=== PATIENT | female | born 2000 | race Two or more races ===

== ENCOUNTER 2020-02-28 04:11 | Inpatient (IN) | payer MEDICAID ==
[~2020-02-28] VITALS: Ht 137.2 cm; Wt 61.5 kg
[2020-02-28] VITALS (8 sets, daily range): BP systolic 103–122; BP diastolic 65–78
[2020-02-28] MEDS ORDERED: ETOMIDATE (2MG/ML) 20ML VIAL IV ONE (04:23)
[2020-02-28] MEDS ORDERED: SUCCINYLCHOLINE CHLORIDE 20 MG/ML 10ML VIAL IV ONE (04:23)
[2020-02-28 05:23] LABS: Hematocrit 36.6 % (36.0-46.0); Hemoglobin 12.1 g/dL (12.2-16.2); Mean Corpuscular Hemoglobin 30.7 pg (28.0-32.0); Mean Corpuscular Hgb Conc. 33.2 g/dL (32.0-36.0); Mean Corpuscular Volume 92.6 fL (80.0-100.0); Platelet Count (auto) 143 10^3/uL (140-450); Red Blood Cells 3.95 10^6/uL (4.0-5.20); Red Cell Distribution Width 15.3 % (11.8-14.3); White Blood Cell 6.6 10^3/uL (4.4-10.8)
[2020-02-28 05:36] LABS: Basophils % (manual) 0 (0.0-2.0); Blast Cells 0; Eosinophils % (manual) 0 (0-7); Metamyelocytes % 0; Myelocytes % 0; Promyelocytes % 0; Reactive Lymphocytes 0
[2020-02-28 05:40] LABS: Albumin 2.6 g/dL (3.4-5.0); Calcium 8.2 mg/dL (8.5-10.1); Potassium 4.7 mmol/L (3.5-5.1)
[2020-02-28 05:41] LABS: Lactic Acid w/Reflex 2.8 mmol/L (0.4-2.0)
[2020-02-28 05:44] LABS: BUN/Creatinine Ratio 15.8; Bilirubin, Total 0.3 mg/dL (0.2-1.0); Total Protein 6.8 g/dL (6.4-8.2)
[2020-02-28 05:58] LABS: INR 0.96 (0.9-1.15); Partial Thromboplastin Time 29.1 sec (23.0-31.2)
[2020-02-28] MEDS ORDERED: SODIUM CHLORIDE 0.9% 1,000 ML IV ONE (06:00)
[2020-02-28] MEDS ORDERED: levoFLOXacin 750MG 150 ML IV ONE (06:00)
[2020-02-28 06:07] LABS: Band Neutrophils % (manual) 1; Lymphocytes % (manual) 4 (10.0-50.0); Monocytes % (manual) 2 (0-12)
[2020-02-28] MEDS ORDERED: MORPHINE SULF INJ 2 MG/ML SYRINGE 1ML IV PRN (07:00)
[2020-02-28] MEDS ORDERED: NITROGLYCERIN 0.4 MG SL TAB SL PRN (07:00)
[2020-02-28] MEDS ORDERED: LORazepam 2MG/ML-1ML VIAL IV ONE (07:30)
[2020-02-28 07:44] LABS: Magnesium 3.1 mg/dL (1.6-2.6)
[2020-02-28 07:53] LABS: Lactate Dehydrogenase 766 U/L (84-246)
[2020-02-28 07:58] LABS: CRP High Sensitivity > 19 mg/dL (< 0.3)
[2020-02-28] MEDS ORDERED: ASPirin 81 mg TAB PO SCH (10:00)
[2020-02-28] MEDS ORDERED: DexAMETHasone SOD PHOS 10MG/1ML VIAL INJ IV SCH (10:00)
[2020-02-28] MEDS ORDERED: FUROSEMIDE 20 MG/2 ML VIAL IV ONE (10:30)
[2020-02-28] MEDS: ASCORBIC ACID 1,000 MG TAB PO SCH (12:18)
[2020-02-28] MEDS: DOXYCYCLINE 100MG/250ML 250 ML IV SCH ×2 (12:18→22:59)
[2020-02-28] MEDS: ZINC SULFATE 220mg CAP or TAB PO SCH (12:18)
[2020-02-28] MEDS: FAMOTIDINE 20 MG TAB PO SCH ×2 (12:18→22:59)
[2020-02-28] MEDS: CHOLECALCIFEROL (VITD3) 2,000 UNIT CAP PO SCH (12:19)
[2020-02-28] MEDS: ENOXAPARIN SOD 40 MG/0.4 ML SYRINGE SC SCH (12:19)
[2020-02-28] MEDS: ALBUTEROL SULF HFA 90MCG INH 200DOSE IN SCH ×2 (14:10→21:33)
[2020-02-28] MEDS ORDERED: IPRA0.00 IN (14:14)
[2020-02-28] MEDS ORDERED: PROM1SOL2 PO (14:14)
[2020-02-28] MEDS ORDERED: AZIT250T9 PO (14:14)
[2020-02-28] MEDS ORDERED: BENZ100C97 PO (14:14)
[2020-02-28] MEDS ORDERED: REMDESIVIR 200 MG in NS 210ml LOADING DOSE ADULT IV ONE (16:00)
[2020-02-28] MEDS: FUROSEMIDE 20 MG/2 ML VIAL IV SCH (18:00)
[2020-02-28] MEDS: ACETAMINOPHEN 325 MG TAB PO PRN (18:13)
[2020-02-28] MEDS: BUDESONIDE (INHALATION) 180 MCG IH IN SCH (21:33)
[2020-02-28] MEDS: DexAMETHasone SOD PHOS 10MG/1ML VIAL INJ IV SCH (22:59)
[2020-02-28] MEDS: LORazepam 2MG/ML-1ML VIAL IV PRN (23:00)
[2020-02-29] VITALS (51 sets, daily range): BP systolic 89–128; BP diastolic 33–92
[2020-02-29] MEDS: ALBUTEROL SULF HFA 90MCG INH 200DOSE IN SCH ×2 (06:40→14:00)
[2020-02-29] MEDS: BUDESONIDE (INHALATION) 180 MCG IH IN SCH (06:40)
[2020-02-29] MEDS: FUROSEMIDE 20 MG/2 ML VIAL IV SCH ×2 (07:25→17:40)
[2020-02-29] MEDS: CHOLECALCIFEROL (VITD3) 2,000 UNIT CAP PO SCH (10:00)
[2020-02-29] MEDS: ASCORBIC ACID 1,000 MG TAB PO SCH (10:00)
[2020-02-29] MEDS: FAMOTIDINE 20 MG TAB PO SCH ×2 (10:00→22:00)
[2020-02-29] MEDS: ZINC SULFATE 220mg CAP or TAB PO SCH (10:00)
[2020-02-29 10:08] LABS: Hematocrit 38.4 % (36.0-46.0); Hemoglobin 12.7 g/dL (12.2-16.2); Mean Corpuscular Hemoglobin 30.4 pg (28.0-32.0); Mean Corpuscular Hgb Conc. 32.9 g/dL (32.0-36.0); Mean Corpuscular Volume 92.4 fL (80.0-100.0); Platelet Count (auto) 136 10^3/uL (140-450); Red Blood Cells 4.16 10^6/uL (4.0-5.20); White Blood Cell 7.6 10^3/uL (4.4-10.8)
[2020-02-29 10:12] LABS: Basophils % (manual) 0 (0.0-2.0); Blast Cells 0; Eosinophils % (manual) 0 (0-7); Promyelocytes % 0; Reactive Lymphocytes 0
[2020-02-29] MEDS: DexAMETHasone SOD PHOS 10MG/1ML VIAL INJ IV SCH ×2 (10:14→22:00)
[2020-02-29] MEDS: DOXYCYCLINE 100MG/250ML 250 ML IV SCH ×2 (10:14→22:00)
[2020-02-29] MEDS: ENOXAPARIN SOD 40 MG/0.4 ML SYRINGE SC SCH (10:14)
[2020-02-29 10:28] LABS: Albumin 2.5 g/dL (3.4-5.0); Calcium 8.1 mg/dL (8.5-10.1); Potassium 4.5 mmol/L (3.5-5.1)
[2020-02-29 10:35] LABS: BUN/Creatinine Ratio 21.2; Bilirubin, Total 0.4 mg/dL (0.2-1.0); Total Protein 6.7 g/dL (6.4-8.2)
[2020-02-29 10:45] LABS: Band Neutrophils % (manual) 11; Lymphocytes % (manual) 4 (10.0-50.0); Metamyelocytes % 3; Monocytes % (manual) 2 (0-12); Myelocytes % 1
[2020-02-29] MEDS: LORazepam 2MG/ML-1ML VIAL IV PRN (13:00)
[2020-02-29] MEDS: ALBUTEROL SULF 2.5 MG/0.5ML(0.5%) NEB SOLN NEB PRN ×2 (13:54→22:18)
[2020-02-29] MEDS ORDERED: PPN PER PHARMACY 0 ML IV SCH (16:00)
[2020-02-29] MEDS: ONDANSETRON HCL 4 MG/2 ML VIAL IV PRN (17:12)
[2020-02-29] MEDS: REMDESIVIR 100mg in NS 230ml DAILYx4DAYS (NO VENT) IV SCH (17:40)
[2020-02-29] MEDS ORDERED: SUCCINYLCHOLINE CHLORIDE 20 MG/ML 10ML VIAL IV ONE (17:45)
[2020-02-29] MEDS ORDERED: ETOMIDATE (2MG/ML) 20ML VIAL IV ONE (17:45)
[2020-02-29] MEDS ORDERED: ROCURONIUM 10MG/ML 10ML VIAL IV ONE (17:46)
[2020-02-29] MEDS ORDERED: PROPOFOL 0 ML IV ONE (17:46)
[2020-02-29] MEDS ORDERED: MIDAZOLAM DRIP 50 mg/50mL 50 ML IV ONE ×2 (17:49→18:31)
[2020-02-29] MEDS: MIDAZOLAM DRIP 50 mg/50mL 50 ML IV SCH (18:13)
[2020-02-29] MEDS: PROPOFOL 100 ML IV SCH (18:13)
[2020-02-29] MEDS: fentaNYL Drip 2500mCg/250mlNS 250 ML IV SCH (18:13)
[2020-02-29] MEDS ORDERED: fentaNYL Drip 2500mCg/250mlNS 250 ML IV ONE (18:16)
[2020-02-29] MEDS: NOREPINEPHRINE 8 MG/250ML KIT 250 ML IV SCH (18:30)
[2020-02-29] MEDS ORDERED: PROPOFOL 100 ML IV ONE (18:35)
[2020-02-29 19:08] LABS: Magnesium 2.6 mg/dL (1.6-2.6)
[2020-02-29] MEDS ORDERED: AMINO ACID INFUSION IN D5W 2,000 ML IV NR (20:00)
[2020-02-29] MEDS: BUDESONIDE (INHALATION) 0.5 MG/2 ML NEB NEB SCH (22:18)
[2020-03-01] VITALS (105 sets, daily range): BP systolic 85–111; BP diastolic 30–65
[2020-03-01] MEDS ORDERED: DEXTROSE (50%) 50ML SYRG IV SCH
[2020-03-01 05:51] LABS: Hematocrit 33.7 % (36.0-46.0); Mean Corpuscular Hemoglobin 30.4 pg (28.0-32.0); Mean Corpuscular Hgb Conc. 32.8 g/dL (32.0-36.0); Mean Corpuscular Volume 92.8 fL (80.0-100.0); Platelet Count (auto) 93 10^3/uL (140-450); Red Blood Cells 3.63 10^6/uL (4.0-5.20); Red Cell Distribution Width 15.1 % (11.8-14.3); White Blood Cell 5.9 10^3/uL (4.4-10.8)
[2020-03-01 05:56] LABS: Basophils % (manual) 0 (0.0-2.0); Blast Cells 0; Eosinophils % (manual) 0 (0-7); Metamyelocytes % 0; Myelocytes % 0; Promyelocytes % 0; Reactive Lymphocytes 0
[2020-03-01] MEDS: InsuLIN REG 1unit/0.01ml Soln (100units/ml) SC SCH ×4 (06:00→18:00)
[2020-03-01] MEDS: FUROSEMIDE 20 MG/2 ML VIAL IV SCH (06:00)
[2020-03-01] MEDS: ACCU-CHEK COMFORT CURVE STRIP VI SCH ×4 (06:00→18:14)
[2020-03-01 06:09] LABS: Calcium 7.6 mg/dL (8.5-10.1); Potassium 3.8 mmol/L (3.5-5.1)
[2020-03-01 06:19] LABS: Albumin 2.2 g/dL (3.4-5.0); BUN/Creatinine Ratio 29.3; Band Neutrophils % (manual) 5; Bilirubin, Total 0.4 mg/dL (0.2-1.0); Lymphocytes % (manual) 8 (10.0-50.0); Magnesium 2.8 mg/dL (1.6-2.6); Monocytes % (manual) 4 (0-12); Pre Albumin 6.6 mg/dL (20.0-40.0); Total Protein 5.9 g/dL (6.4-8.2)
[2020-03-01] MEDS: BUDESONIDE (INHALATION) 0.5 MG/2 ML NEB NEB SCH ×2 (06:31→21:50)
[2020-03-01] MEDS: ALBUTEROL SULF 2.5 MG/0.5ML(0.5%) NEB SOLN NEB PRN ×3 (06:31→21:50)
[2020-03-01] MEDS: DexAMETHasone SOD PHOS 10MG/1ML VIAL INJ IV SCH ×2 (09:07→22:00)
[2020-03-01] MEDS: ZINC SULFATE 220mg CAP or TAB PO SCH (09:09)
[2020-03-01] MEDS: FAMOTIDINE 20 MG TAB PO SCH ×2 (09:09→22:00)
[2020-03-01] MEDS: DOXYCYCLINE 100MG/250ML 250 ML IV SCH ×2 (09:09→22:00)
[2020-03-01] MEDS: CHOLECALCIFEROL (VITD3) 2,000 UNIT CAP PO SCH (09:10)
[2020-03-01] MEDS: ASCORBIC ACID 1,000 MG TAB PO SCH (09:10)
[2020-03-01] MEDS: ENOXAPARIN SOD 40 MG/0.4 ML SYRINGE SC SCH (09:12)
[2020-03-01] MEDS: MIDAZOLAM DRIP 50 mg/50mL 50 ML IV SCH ×2 (09:16→22:00)
[2020-03-01] MEDS: fentaNYL Drip 2500mCg/250mlNS 250 ML IV SCH (13:59)
[2020-03-01] MEDS: REMDESIVIR 100mg in NS 230ml DAILYx4DAYS (NO VENT) IV SCH (16:47)
[2020-03-01] MEDS: ACETAMINOPHEN 325 MG TAB PO PRN (17:32)
[2020-03-01] MEDS: PROPOFOL 100 ML IV SCH (17:45)
[2020-03-01] MEDS: NOREPINEPHRINE 8 MG/250ML KIT 250 ML IV SCH (17:45)
[2020-03-01] MEDS: Jevity 1.2 Cal/Fiber 1 Liter GT SCH (19:00)
[2020-03-01] MEDS ORDERED: PPN PER PHARMACY IV NR ×8 (20:00)
[2020-03-02] VITALS (94 sets, daily range): BP systolic 96–122; BP diastolic 37–56
[2020-03-02] MEDS: InsuLIN REG 1unit/0.01ml Soln (100units/ml) SC SCH ×2 (00:21→06:00)
[2020-03-02] MEDS: ACCU-CHEK COMFORT CURVE STRIP VI SCH ×2 (00:22→06:00)
[2020-03-02 06:41] LABS: Hemoglobin 11.5 g/dL (12.2-16.2); Mean Corpuscular Hemoglobin 30.2 pg (28.0-32.0); Mean Corpuscular Hgb Conc. 32.8 g/dL (32.0-36.0); Mean Corpuscular Volume 92.2 fL (80.0-100.0); Platelet Count (auto) 119 10^3/uL (140-450); Red Blood Cells 3.79 10^6/uL (4.0-5.20); Red Cell Distribution Width 15.4 % (11.8-14.3); White Blood Cell 10.2 10^3/uL (4.4-10.8)
[2020-03-02] MEDS: BUDESONIDE (INHALATION) 0.5 MG/2 ML NEB NEB SCH ×2 (06:42→21:55)
[2020-03-02] MEDS: ALBUTEROL SULF 2.5 MG/0.5ML(0.5%) NEB SOLN NEB PRN ×2 (06:42→14:56)
[2020-03-02 06:46] LABS: Basophils % (manual) 0 (0.0-2.0); Blast Cells 0; Eosinophils % (manual) 0 (0-7); Metamyelocytes % 0; Myelocytes % 0; Promyelocytes % 0; Reactive Lymphocytes 0
[2020-03-02 07:06] LABS: BUN/Creatinine Ratio 40.2; Calcium 8.2 mg/dL (8.5-10.1)
[2020-03-02] MEDS ORDERED: METOPROLOL TARTRATE 1MG/1ML-5ML VIAL IV ONE (07:42)
[2020-03-02] MEDS: FUROSEMIDE 20 MG/2 ML VIAL IV SCH (08:34)
[2020-03-02] MEDS: DOXYCYCLINE 100MG/250ML 250 ML IV SCH ×2 (08:34→22:28)
[2020-03-02] MEDS: DexAMETHasone SOD PHOS 10MG/1ML VIAL INJ IV SCH ×2 (08:34→22:27)
[2020-03-02] MEDS: ENOXAPARIN SOD 40 MG/0.4 ML SYRINGE SC SCH (08:35)
[2020-03-02] MEDS: ASCORBIC ACID 1,000 MG TAB PO SCH (08:35)
[2020-03-02] MEDS: CHOLECALCIFEROL (VITD3) 2,000 UNIT CAP PO SCH (08:35)
[2020-03-02] MEDS: FAMOTIDINE 20 MG TAB PO SCH ×2 (08:35→22:28)
[2020-03-02] MEDS: ZINC SULFATE 220mg CAP or TAB PO SCH (08:35)
[2020-03-02 09:36] LABS: Band Neutrophils % (manual) 9
[2020-03-02 09:37] LABS: Lymphocytes % (manual) 3 (10.0-50.0); Monocytes % (manual) 3 (0-12)
[2020-03-02] MEDS: MIDAZOLAM DRIP 50 mg/50mL 50 ML IV SCH (16:10)
[2020-03-02] MEDS: REMDESIVIR 100mg in NS 230ml DAILYx4DAYS (NO VENT) IV SCH (16:19)
[2020-03-02] MEDS: NOREPINEPHRINE 8 MG/250ML KIT 250 ML IV SCH (17:27)
[2020-03-02] MEDS: PROPOFOL 100 ML IV SCH (18:13)
[2020-03-02] MEDS: fentaNYL Drip 2500mCg/250mlNS 250 ML IV SCH (18:26)
[2020-03-02] MEDS: Jevity 1.2 Cal/Fiber 1 Liter GT SCH (20:30)
[2020-03-02] MEDS: SODIUM CHLOR 0.9% PF (SALINE LOCK) 10ML VIAL/SYR IV SCH (22:28)
[2020-03-03] VITALS (78 sets, daily range): BP systolic 19–136; BP diastolic 15–92
[2020-03-03] MEDS: MIDAZOLAM DRIP 50 mg/50mL 50 ML IV SCH (00:03)
[2020-03-03 03:15] LABS: Hematocrit 35.3 % (36.0-46.0); Hemoglobin 11.2 g/dL (12.2-16.2); Mean Corpuscular Hemoglobin 29.5 pg (28.0-32.0); Mean Corpuscular Hgb Conc. 31.9 g/dL (32.0-36.0); Mean Corpuscular Volume 92.5 fL (80.0-100.0); Platelet Count (auto) 112 10^3/uL (140-450); Red Blood Cells 3.81 10^6/uL (4.0-5.20); Red Cell Distribution Width 15.5 % (11.8-14.3); White Blood Cell 13.2 10^3/uL (4.4-10.8)
[2020-03-03 03:21] LABS: Basophils % (manual) 0 (0.0-2.0); Blast Cells 0; Eosinophils % (manual) 0 (0-7); Metamyelocytes % 0; Myelocytes % 0; Promyelocytes % 0; Reactive Lymphocytes 0
[2020-03-03 03:23] LABS: Albumin 2.2 g/dL (3.4-5.0); Calcium 8.2 mg/dL (8.5-10.1); Potassium 4.3 mmol/L (3.5-5.1)
[2020-03-03 03:27] LABS: BUN/Creatinine Ratio 38.4; Bilirubin, Total 0.4 mg/dL (0.2-1.0); Total Protein 5.9 g/dL (6.4-8.2)
[2020-03-03 04:20] LABS: Band Neutrophils % (manual) 3; Lymphocytes % (manual) 5 (10.0-50.0); Monocytes % (manual) 3 (0-12)
[2020-03-03] MEDS: ALBUTEROL SULF 2.5 MG/0.5ML(0.5%) NEB SOLN NEB PRN ×2 (06:02→22:47)
[2020-03-03] MEDS: BUDESONIDE (INHALATION) 0.5 MG/2 ML NEB NEB SCH ×2 (06:03→22:47)
[2020-03-03] MEDS: FAMOTIDINE 20 MG TAB PO SCH (10:08)
[2020-03-03] MEDS: ENOXAPARIN SOD 40 MG/0.4 ML SYRINGE SC SCH (10:08)
[2020-03-03] MEDS: CHOLECALCIFEROL (VITD3) 2,000 UNIT CAP PO SCH (10:08)
[2020-03-03] MEDS: ZINC SULFATE 220mg CAP or TAB PO SCH (10:09)
[2020-03-03] MEDS: DexAMETHasone SOD PHOS 10MG/1ML VIAL INJ IV SCH ×2 (10:09→21:44)
[2020-03-03] MEDS: FUROSEMIDE 20 MG/2 ML VIAL IV SCH (10:09)
[2020-03-03] MEDS: SODIUM CHLOR 0.9% PF (SALINE LOCK) 10ML VIAL/SYR IV SCH ×2 (10:10→21:46)
[2020-03-03] MEDS: DOXYCYCLINE 100MG/250ML 250 ML IV SCH ×2 (10:10→21:46)
[2020-03-03] MEDS: ATRACURIUM BESYLATE 1,000 MG in D5W 5% 150 ML IV SCH (11:52)
[2020-03-03] MEDS ORDERED: cefTRIAXone 1GM/50ML D5W 50 ML IV ONE (14:45)
[2020-03-03] MEDS: ASCORBIC ACID 1,000 MG TAB PO SCH (18:17)
[2020-03-03] MEDS: REMDESIVIR 100mg in NS 230ml DAILYx4DAYS (NO VENT) IV SCH (18:23)
[2020-03-03] MEDS: FREE WATER GT SCH (19:40)
[2020-03-03] MEDS: PROPOFOL 100 ML IV SCH (21:40)
[2020-03-03] MEDS: fentaNYL Drip 2500mCg/250mlNS 250 ML IV SCH (21:40)
[2020-03-03] MEDS: NOREPINEPHRINE 8 MG/250ML KIT 250 ML IV SCH (21:41)
[2020-03-03] MEDS: FAMOTIDINE (10MG/ML) 2ML VL IV SCH (21:45)
[2020-03-04] VITALS (100 sets, daily range): BP systolic 90–140; BP diastolic 29–90
[2020-03-04] MEDS: MIDAZOLAM DRIP 50 mg/50mL 50 ML IV SCH ×6 (02:38→21:19)
[2020-03-04 06:00] LABS: Hematocrit 33.3 % (36.0-46.0); Mean Corpuscular Hemoglobin 30.5 pg (28.0-32.0); Mean Corpuscular Hgb Conc. 33.1 g/dL (32.0-36.0); Mean Corpuscular Volume 92.2 fL (80.0-100.0); Platelet Count (auto) 109 10^3/uL (140-450); Red Blood Cells 3.61 10^6/uL (4.0-5.20); Red Cell Distribution Width 15.3 % (11.8-14.3); White Blood Cell 9.7 10^3/uL (4.4-10.8)
[2020-03-04] MEDS: FREE WATER GT SCH ×4 (06:00→17:41)
[2020-03-04 06:13] LABS: Band Neutrophils % (manual) 0; Basophils % (manual) 0 (0.0-2.0); Blast Cells 0; Eosinophils % (manual) 0 (0-7); Myelocytes % 0; Promyelocytes % 0; Reactive Lymphocytes 0
[2020-03-04 06:22] LABS: Potassium 4.8 mmol/L (3.5-5.1)
[2020-03-04 06:31] LABS: Albumin 2.2 g/dL (3.4-5.0); BUN/Creatinine Ratio 39.7; Bilirubin, Total 0.5 mg/dL (0.2-1.0); Calcium 7.9 mg/dL (8.5-10.1); Total Protein 5.6 g/dL (6.4-8.2)
[2020-03-04 06:34] LABS: Lymphocytes % (manual) 3 (10.0-50.0); Metamyelocytes % 1; Monocytes % (manual) 2 (0-12)
[2020-03-04] MEDS: BUDESONIDE (INHALATION) 0.5 MG/2 ML NEB NEB SCH ×2 (06:40→21:58)
[2020-03-04] MEDS: ALBUTEROL SULF 2.5 MG/0.5ML(0.5%) NEB SOLN NEB PRN ×2 (06:40→21:58)
[2020-03-04] MEDS: PROPOFOL 100 ML IV SCH (07:15)
[2020-03-04] MEDS: cefTRIAXone 1GM/50ML D5W 50 ML IV SCH (08:53)
[2020-03-04] MEDS: ZINC SULFATE 220mg CAP or TAB PO SCH (10:00)
[2020-03-04] MEDS: ASCORBIC ACID 1,000 MG TAB PO SCH (10:00)
[2020-03-04] MEDS: SODIUM CHLOR 0.9% PF (SALINE LOCK) 10ML VIAL/SYR IV SCH ×2 (10:00→21:17)
[2020-03-04] MEDS: CHOLECALCIFEROL (VITD3) 2,000 UNIT CAP PO SCH (10:00)
[2020-03-04] MEDS: DexAMETHasone SOD PHOS 10MG/1ML VIAL INJ IV SCH ×2 (10:21→21:17)
[2020-03-04] MEDS: FAMOTIDINE (10MG/ML) 2ML VL IV SCH ×2 (10:21→21:17)
[2020-03-04] MEDS: FUROSEMIDE 20 MG/2 ML VIAL IV SCH (10:22)
[2020-03-04] MEDS: fentaNYL Drip 2500mCg/250mlNS 250 ML IV SCH ×2 (11:03→23:02)
[2020-03-04 13:02] LABS: INR 1.13 (0.9-1.15)
[2020-03-04] MEDS: ENOXAPARIN SOD 40 MG/0.4 ML SYRINGE SC SCH (14:40)
[2020-03-04] MEDS: ATRACURIUM BESYLATE 1,000 MG in D5W 5% 150 ML IV SCH (17:00)
[2020-03-05] VITALS (100 sets, daily range): BP systolic 80–141; BP diastolic 41–135
[2020-03-05 03:33] LABS: Hematocrit 34.8 % (36.0-46.0); Hemoglobin 11.4 g/dL (12.2-16.2); Mean Corpuscular Hemoglobin 30.1 pg (28.0-32.0); Mean Corpuscular Hgb Conc. 32.7 g/dL (32.0-36.0); Mean Corpuscular Volume 92.2 fL (80.0-100.0); Platelet Count (auto) 114 10^3/uL (140-450); Red Blood Cells 3.77 10^6/uL (4.0-5.20); Red Cell Distribution Width 14.8 % (11.8-14.3); White Blood Cell 9.4 10^3/uL (4.4-10.8)
[2020-03-05 03:41] LABS: Basophils % (manual) 0 (0.0-2.0); Blast Cells 0; Eosinophils % (manual) 0 (0-7); Metamyelocytes % 0; Myelocytes % 0; Promyelocytes % 0; Reactive Lymphocytes 0
[2020-03-05 03:50] LABS: Albumin 2.3 g/dL (3.4-5.0); Potassium 4.6 mmol/L (3.5-5.1)
[2020-03-05 03:53] LABS: BUN/Creatinine Ratio 33.8; Bilirubin, Total 0.6 mg/dL (0.2-1.0); Total Protein 5.8 g/dL (6.4-8.2)
[2020-03-05 03:57] LABS: Band Neutrophils % (manual) 4; Lymphocytes % (manual) 3 (10.0-50.0); Monocytes % (manual) 1 (0-12)
[2020-03-05] MEDS: ALBUTEROL SULF 2.5 MG/0.5ML(0.5%) NEB SOLN NEB PRN ×2 (06:52→22:09)
[2020-03-05] MEDS: BUDESONIDE (INHALATION) 0.5 MG/2 ML NEB NEB SCH ×2 (06:52→22:09)
[2020-03-05] MEDS: ATRACURIUM BESYLATE 1,000 MG in D5W 5% 150 ML IV SCH (08:08)
[2020-03-05] MEDS: cefTRIAXone 1GM/50ML D5W 50 ML IV SCH (09:07)
[2020-03-05] MEDS: FAMOTIDINE (10MG/ML) 2ML VL IV SCH ×2 (09:21→21:37)
[2020-03-05] MEDS: FUROSEMIDE 20 MG/2 ML VIAL IV SCH (09:21)
[2020-03-05] MEDS: DexAMETHasone SOD PHOS 10MG/1ML VIAL INJ IV SCH ×2 (09:24→21:38)
[2020-03-05] MEDS: fentaNYL Drip 2500mCg/250mlNS 250 ML IV SCH ×2 (09:24→22:04)
[2020-03-05] MEDS: MIDAZOLAM DRIP 50 mg/50mL 50 ML IV SCH ×4 (10:00→22:03)
[2020-03-05] MEDS: SODIUM CHLOR 0.9% PF (SALINE LOCK) 10ML VIAL/SYR IV SCH ×2 (13:30→21:38)
[2020-03-05] MEDS: ZINC SULFATE 220mg CAP or TAB PO SCH (13:30)
[2020-03-05] MEDS: FREE WATER GT SCH ×4 (13:30→23:09)
[2020-03-05] MEDS: ASCORBIC ACID 1,000 MG TAB PO SCH (13:30)
[2020-03-05] MEDS: CHOLECALCIFEROL (VITD3) 2,000 UNIT CAP PO SCH (16:11)
[2020-03-05] MEDS: ENOXAPARIN SOD 40 MG/0.4 ML SYRINGE SC SCH (16:11)
[2020-03-05] MEDS: PROPOFOL 100 ML IV SCH (18:13)
[2020-03-05] MEDS: NOREPINEPHRINE 8 MG/250ML KIT 250 ML IV SCH (18:30)
[2020-03-06] VITALS (99 sets, daily range): BP systolic 85–167; BP diastolic 43–161
[2020-03-06 04:06] LABS: Hematocrit 36.8 % (36.0-46.0); Hemoglobin 12.1 g/dL (12.2-16.2); Mean Corpuscular Hgb Conc. 32.8 g/dL (32.0-36.0); Mean Corpuscular Volume 91.5 fL (80.0-100.0); Platelet Count (auto) 129 10^3/uL (140-450); Red Blood Cells 4.02 10^6/uL (4.0-5.20); Red Cell Distribution Width 14.6 % (11.8-14.3); White Blood Cell 8.8 10^3/uL (4.4-10.8)
[2020-03-06 04:19] LABS: Basophils % (manual) 0 (0.0-2.0); Blast Cells 0; Eosinophils % (manual) 0 (0-7); Metamyelocytes % 0; Promyelocytes % 0; Reactive Lymphocytes 0
[2020-03-06 04:23] LABS: Albumin 2.4 g/dL (3.4-5.0); Calcium 7.9 mg/dL (8.5-10.1); Potassium 4.6 mmol/L (3.5-5.1)
[2020-03-06 04:28] LABS: BUN/Creatinine Ratio 37.1; Bilirubin, Total 0.8 mg/dL (0.2-1.0); Total Protein 5.7 g/dL (6.4-8.2)
[2020-03-06 04:42] LABS: Band Neutrophils % (manual) 3; Lymphocytes % (manual) 4 (10.0-50.0); Monocytes % (manual) 2 (0-12); Myelocytes % 1
[2020-03-06] MEDS: FREE WATER GT SCH ×3 (05:33→18:00)
[2020-03-06] MEDS: MIDAZOLAM DRIP 50 mg/50mL 50 ML IV SCH ×2 (06:43→21:18)
[2020-03-06] MEDS: BUDESONIDE (INHALATION) 0.5 MG/2 ML NEB NEB SCH ×2 (06:58→18:10)
[2020-03-06] MEDS: ALBUTEROL SULF 2.5 MG/0.5ML(0.5%) NEB SOLN NEB PRN ×2 (06:58→18:10)
[2020-03-06] MEDS: cefTRIAXone 1GM/50ML D5W 50 ML IV SCH (09:00)
[2020-03-06] MEDS: DexAMETHasone SOD PHOS 10MG/1ML VIAL INJ IV SCH ×2 (12:30→21:28)
[2020-03-06] MEDS: CHOLECALCIFEROL (VITD3) 2,000 UNIT CAP PO SCH (12:30)
[2020-03-06] MEDS: FUROSEMIDE 20 MG/2 ML VIAL IV SCH (12:30)
[2020-03-06] MEDS: ENOXAPARIN SOD 40 MG/0.4 ML SYRINGE SC SCH (12:30)
[2020-03-06] MEDS: ASCORBIC ACID 1,000 MG TAB PO SCH (12:30)
[2020-03-06] MEDS: ZINC SULFATE 220mg CAP or TAB PO SCH (12:30)
[2020-03-06] MEDS: FAMOTIDINE (10MG/ML) 2ML VL IV SCH ×2 (12:30→21:29)
[2020-03-06] MEDS: SODIUM CHLOR 0.9% PF (SALINE LOCK) 10ML VIAL/SYR IV SCH ×2 (12:30→21:29)
[2020-03-06] MEDS ORDERED: D5W 5% IV SCH (16:00)
[2020-03-06] MEDS ORDERED: ATRACURIUM BESYLATE IV SCH (16:00)
[2020-03-06] MEDS: D5W 5% IV SCH (17:00)
[2020-03-06] MEDS: ATRACURIUM BESYLATE IV SCH (17:00)
[2020-03-06] MEDS: PROPOFOL 100 ML IV SCH (18:13)
[2020-03-06] MEDS: NOREPINEPHRINE 8 MG/250ML KIT 250 ML IV SCH (18:30)
[2020-03-07] VITALS (86 sets, daily range): BP systolic 80–154; BP diastolic 37–118
[2020-03-07 03:33] LABS: Basophils # (auto) 0 10 ^3/uL (0-0.2); Basophils % (auto) 0.3 % (0.0-2.0); Eosinophils # (auto) 0 10 ^3/uL (0-0.8); Hematocrit 37.4 % (36.0-46.0); Hemoglobin 12.3 g/dL (12.2-16.2); Lymphocytes # (auto) 0.2 10 ^3/uL (0.4-5.4); Lymphocytes % (auto) 2.2 % (10.0-50.0); Mean Corpuscular Hgb Conc. 32.8 g/dL (32.0-36.0); Mean Corpuscular Volume 91.5 fL (80.0-100.0); Monocytes # (auto) 0.2 10 ^3/uL (0-1.3); Monocytes % (auto) 2.4 % (0.0-12.0); Neutrophils # (auto) 9.5 10 ^3/uL (1.6-8.6); Neutrophils % (auto) 95.1 % (37.0-80.0); Platelet Count (auto) 122 10^3/uL (140-450); Red Blood Cells 4.08 10^6/uL (4.0-5.20); White Blood Cell 9.9 10^3/uL (4.4-10.8)
[2020-03-07 03:56] LABS: Albumin 2.4 g/dL (3.4-5.0); Calcium 7.9 mg/dL (8.5-10.1); Potassium 4.2 mmol/L (3.5-5.1)
[2020-03-07 04:01] LABS: BUN/Creatinine Ratio 45.8; Bilirubin, Total 0.8 mg/dL (0.2-1.0); Total Protein 5.7 g/dL (6.4-8.2)
[2020-03-07] MEDS: FREE WATER GT SCH ×4 (06:00→17:36)
[2020-03-07] MEDS: cefTRIAXone 1GM/50ML D5W 50 ML IV SCH (09:15)
[2020-03-07] MEDS: ENOXAPARIN SOD 40 MG/0.4 ML SYRINGE SC SCH (09:49)
[2020-03-07] MEDS: FUROSEMIDE 20 MG/2 ML VIAL IV SCH (09:49)
[2020-03-07] MEDS: ASCORBIC ACID 1,000 MG TAB PO SCH (09:49)
[2020-03-07] MEDS: CHOLECALCIFEROL (VITD3) 2,000 UNIT CAP PO SCH (09:49)
[2020-03-07] MEDS: DexAMETHasone SOD PHOS 10MG/1ML VIAL INJ IV SCH ×2 (09:49→22:00)
[2020-03-07] MEDS: ZINC SULFATE 220mg CAP or TAB PO SCH (09:49)
[2020-03-07] MEDS: FAMOTIDINE (10MG/ML) 2ML VL IV SCH ×2 (09:49→22:00)
[2020-03-07] MEDS: SODIUM CHLOR 0.9% PF (SALINE LOCK) 10ML VIAL/SYR IV SCH ×2 (09:49→22:00)
[2020-03-07] MEDS: BUDESONIDE (INHALATION) 0.5 MG/2 ML NEB NEB SCH ×2 (10:26→22:50)
[2020-03-07] MEDS ORDERED: hydrALAZINE HCL 20 MG/ML VL IV PRN (13:15)
[2020-03-07] MEDS: D5W 5% IV SCH (14:11)
[2020-03-07] MEDS: ATRACURIUM BESYLATE IV SCH (14:11)
[2020-03-07] MEDS: fentaNYL Drip 2500mCg/250mlNS 250 ML IV SCH (17:37)
[2020-03-07] MEDS: PROPOFOL 100 ML IV SCH (17:37)
[2020-03-07] MEDS: NOREPINEPHRINE 8 MG/250ML KIT 250 ML IV SCH (17:38)
[2020-03-07] MEDS: MIDAZOLAM DRIP 50 mg/50mL 50 ML IV SCH (22:00)
[2020-03-07] MEDS: ALBUTEROL SULF 2.5 MG/0.5ML(0.5%) NEB SOLN NEB PRN (23:01)
[2020-03-08] VITALS (94 sets, daily range): BP systolic 101–156; BP diastolic 44–82
[2020-03-08] MEDS: fentaNYL Drip 2500mCg/250mlNS 250 ML IV SCH ×2 (02:00→20:02)
[2020-03-08] MEDS: ATRACURIUM BESYLATE IV SCH (02:05)
[2020-03-08] MEDS: D5W 5% IV SCH (02:05)
[2020-03-08 04:21] LABS: Hematocrit 38.9 % (36.0-46.0); Mean Corpuscular Hemoglobin 30.6 pg (28.0-32.0); Mean Corpuscular Hgb Conc. 33.5 g/dL (32.0-36.0); Mean Corpuscular Volume 91.5 fL (80.0-100.0); Platelet Count (auto) 146 10^3/uL (140-450); Red Blood Cells 4.25 10^6/uL (4.0-5.20); Red Cell Distribution Width 15.1 % (11.8-14.3); White Blood Cell 15.4 10^3/uL (4.4-10.8)
[2020-03-08 04:38] LABS: Albumin 2.5 g/dL (3.4-5.0); Calcium 8.2 mg/dL (8.5-10.1); Potassium 4.4 mmol/L (3.5-5.1)
[2020-03-08 04:41] LABS: BUN/Creatinine Ratio 42.2; Total Protein 5.9 g/dL (6.4-8.2)
[2020-03-08 04:48] LABS: Basophils % (manual) 0 (0.0-2.0); Blast Cells 0; Eosinophils % (manual) 0 (0-7); Metamyelocytes % 0; Myelocytes % 0; Promyelocytes % 0; Reactive Lymphocytes 0
[2020-03-08 05:10] LABS: Band Neutrophils % (manual) 1; Lymphocytes % (manual) 5 (10.0-50.0); Monocytes % (manual) 4 (0-12)
[2020-03-08] MEDS: FREE WATER GT SCH ×3 (06:00→16:36)
[2020-03-08] MEDS: BUDESONIDE (INHALATION) 0.5 MG/2 ML NEB NEB SCH ×2 (06:09→22:34)
[2020-03-08] MEDS: ALBUTEROL SULF 2.5 MG/0.5ML(0.5%) NEB SOLN NEB PRN ×2 (06:09→22:34)
[2020-03-08] MEDS ORDERED: cefTRIAXone 1GM/50ML D5W 50 ML IV SCH (09:00)
[2020-03-08] MEDS: ZINC SULFATE 220mg CAP or TAB PO SCH (09:37)
[2020-03-08] MEDS: CHOLECALCIFEROL (VITD3) 2,000 UNIT CAP PO SCH (09:38)
[2020-03-08] MEDS: ASCORBIC ACID 1,000 MG TAB PO SCH (09:39)
[2020-03-08] MEDS: FUROSEMIDE 20 MG/2 ML VIAL IV SCH (09:39)
[2020-03-08] MEDS: FAMOTIDINE (10MG/ML) 2ML VL IV SCH ×2 (09:39→22:00)
[2020-03-08] MEDS: DexAMETHasone SOD PHOS 10MG/1ML VIAL INJ IV SCH (09:40)
[2020-03-08] MEDS: SODIUM CHLOR 0.9% PF (SALINE LOCK) 10ML VIAL/SYR IV SCH ×2 (09:40→22:00)
[2020-03-08] MEDS: ENOXAPARIN SOD 40 MG/0.4 ML SYRINGE SC SCH (09:40)
[2020-03-08] MEDS: ACETAMINOPHEN 325 MG TAB PO PRN (11:23)
[2020-03-08] MEDS: MIDAZOLAM DRIP 50 mg/50mL 50 ML IV SCH ×2 (13:04→20:03)
[2020-03-08] MEDS: LINEZOLID 600MG/300ML 300 ML IV SCH (14:22)
[2020-03-08] MEDS: MEROPENEM 1GM IVPB 100 ML IV SCH ×2 (16:37→21:45)
[2020-03-08] MEDS: NOREPINEPHRINE 8 MG/250ML KIT 250 ML IV SCH (18:30)
[2020-03-08 18:44] LABS: Urine Bacteria NONE SEEN /hpf (None Seen); Urine Blood Negative /uL (Negative); Urine Budding Yeast LOADED /hpf (None Seen); Urine Mucus FEW (None Seen); Urine Specific Gravity 1.034 (1.001-1.035); Urine WBC 37 /hpf (0 - 5)
[2020-03-09] VITALS (99 sets, daily range): BP systolic 94–149; BP diastolic 36–71
[2020-03-09] MEDS: MIDAZOLAM DRIP 50 mg/50mL 50 ML IV SCH ×5 (00:27→22:30)
[2020-03-09] MEDS: MEROPENEM 1GM IVPB 100 ML IV SCH ×3 (00:30→21:59)
[2020-03-09] MEDS: LINEZOLID 600MG/300ML 300 ML IV SCH ×2 (02:00→14:07)
[2020-03-09] MEDS: D5W 5% IV SCH ×2 (03:58→11:25)
[2020-03-09] MEDS: ATRACURIUM BESYLATE IV SCH ×2 (03:58→11:25)
[2020-03-09] MEDS: PROPOFOL 100 ML IV SCH ×2 (03:58→18:13)
[2020-03-09] MEDS: FREE WATER GT SCH ×4 (06:00→18:49)
[2020-03-09] MEDS: ALBUTEROL SULF 2.5 MG/0.5ML(0.5%) NEB SOLN NEB PRN ×2 (06:52→22:49)
[2020-03-09] MEDS: BUDESONIDE (INHALATION) 0.5 MG/2 ML NEB NEB SCH ×2 (06:52→22:49)
[2020-03-09 08:51] LABS: Basophils # (auto) 0 10 ^3/uL (0-0.2); Basophils % (auto) 0.2 % (0.0-2.0); Eosinophils # (auto) 0 10 ^3/uL (0-0.8); Eosinophils % (auto) 0.1 % (0.0-7.0); Hematocrit 38.4 % (36.0-46.0); Hemoglobin 12.3 g/dL (12.2-16.2); Lymphocytes # (auto) 0.5 10 ^3/uL (0.4-5.4); Lymphocytes % (auto) 3.3 % (10.0-50.0); Mean Corpuscular Hemoglobin 29.8 pg (28.0-32.0); Mean Corpuscular Volume 93.2 fL (80.0-100.0); Monocytes # (auto) 0.5 10 ^3/uL (0-1.3); Monocytes % (auto) 3.8 % (0.0-12.0); Neutrophils # (auto) 13.1 10 ^3/uL (1.6-8.6); Neutrophils % (auto) 92.6 % (37.0-80.0); Nucleated Red Blood Cells % 0.1 %; Platelet Count (auto) 122 10^3/uL (140-450); Red Blood Cells 4.12 10^6/uL (4.0-5.20); Red Cell Distribution Width 15.1 % (11.8-14.3); White Blood Cell 14.1 10^3/uL (4.4-10.8)
[2020-03-09] MEDS: fentaNYL Drip 2500mCg/250mlNS 250 ML IV SCH (08:54)
[2020-03-09 09:14] LABS: Albumin 2.3 g/dL (3.4-5.0); BUN/Creatinine Ratio 38.2; Calcium 8.3 mg/dL (8.5-10.1); Potassium 3.5 mmol/L (3.5-5.1)
[2020-03-09 09:17] LABS: Bilirubin, Total 1.3 mg/dL (0.2-1.0); Total Protein 5.7 g/dL (6.4-8.2)
[2020-03-09] MEDS: FUROSEMIDE 20 MG/2 ML VIAL IV SCH (10:37)
[2020-03-09] MEDS: FAMOTIDINE (10MG/ML) 2ML VL IV SCH ×2 (10:38→21:59)
[2020-03-09] MEDS: SODIUM CHLOR 0.9% PF (SALINE LOCK) 10ML VIAL/SYR IV SCH ×2 (10:38→21:59)
[2020-03-09] MEDS: DexAMETHasone SOD PHOS 10MG/1ML VIAL INJ IV SCH (10:38)
[2020-03-09] MEDS: ENOXAPARIN SOD 40 MG/0.4 ML SYRINGE SC SCH (10:39)
[2020-03-09] MEDS: ZINC SULFATE 220mg CAP or TAB PO SCH (10:39)
[2020-03-09] MEDS: CHOLECALCIFEROL (VITD3) 2,000 UNIT CAP PO SCH (10:40)
[2020-03-09] MEDS: ASCORBIC ACID 1,000 MG TAB PO SCH (10:42)
[2020-03-09] MEDS: NOREPINEPHRINE 8 MG/250ML KIT 250 ML IV SCH (18:30)
[2020-03-09] MEDS: Jevity 1.2 Cal/Fiber 1 Liter GT SCH (18:51)
[2020-03-10] VITALS (100 sets, daily range): BP systolic 94–143; BP diastolic 35–76
[2020-03-10] MEDS: FREE WATER GT SCH ×2 (00:10→05:43)
[2020-03-10] MEDS: fentaNYL Drip 2500mCg/250mlNS 250 ML IV SCH (01:02)
[2020-03-10] MEDS: LINEZOLID 600MG/300ML 300 ML IV SCH ×2 (01:28→17:01)
[2020-03-10] MEDS: D5W 5% IV SCH (04:05)
[2020-03-10] MEDS: ATRACURIUM BESYLATE IV SCH (04:05)
[2020-03-10 05:23] LABS: Basophils # (auto) 0 10 ^3/uL (0-0.2); Basophils % (auto) 0.1 % (0.0-2.0); Eosinophils # (auto) 0 10 ^3/uL (0-0.8); Hematocrit 32.7 % (36.0-46.0); Hemoglobin 10.4 g/dL (12.2-16.2); Lymphocytes # (auto) 0.3 10 ^3/uL (0.4-5.4); Lymphocytes % (auto) 2.3 % (10.0-50.0); Mean Corpuscular Hemoglobin 29.8 pg (28.0-32.0); Mean Corpuscular Hgb Conc. 31.8 g/dL (32.0-36.0); Mean Corpuscular Volume 93.7 fL (80.0-100.0); Monocytes # (auto) 0.5 10 ^3/uL (0-1.3); Monocytes % (auto) 3.3 % (0.0-12.0); Neutrophils # (auto) 13.1 10 ^3/uL (1.6-8.6); Neutrophils % (auto) 94.3 % (37.0-80.0); Platelet Count (auto) 112 10^3/uL (140-450); White Blood Cell 13.9 10^3/uL (4.4-10.8)
[2020-03-10 05:38] LABS: Albumin 2.2 g/dL (3.4-5.0); Calcium 7.8 mg/dL (8.5-10.1); Potassium 3.5 mmol/L (3.5-5.1)
[2020-03-10 05:42] LABS: BUN/Creatinine Ratio 32.9; Bilirubin, Total 0.9 mg/dL (0.2-1.0); Total Protein 5.2 g/dL (6.4-8.2)
[2020-03-10] MEDS: MIDAZOLAM DRIP 50 mg/50mL 50 ML IV SCH ×3 (05:47→19:51)
[2020-03-10] MEDS: MEROPENEM 1GM IVPB 100 ML IV SCH ×3 (05:48→21:45)
[2020-03-10] MEDS: ALBUTEROL SULF 2.5 MG/0.5ML(0.5%) NEB SOLN NEB PRN (07:12)
[2020-03-10] MEDS: BUDESONIDE (INHALATION) 0.5 MG/2 ML NEB NEB SCH ×2 (07:12→22:38)
[2020-03-10] MEDS: FAMOTIDINE (10MG/ML) 2ML VL IV SCH ×2 (09:48→22:00)
[2020-03-10] MEDS: FUROSEMIDE 20 MG/2 ML VIAL IV SCH (09:48)
[2020-03-10] MEDS: ASCORBIC ACID 1,000 MG TAB PO SCH (09:49)
[2020-03-10] MEDS: ENOXAPARIN SOD 40 MG/0.4 ML SYRINGE SC SCH (09:49)
[2020-03-10] MEDS: ZINC SULFATE 220mg CAP or TAB PO SCH (09:49)
[2020-03-10] MEDS: CHOLECALCIFEROL (VITD3) 2,000 UNIT CAP PO SCH (09:49)
[2020-03-10] MEDS: SODIUM CHLOR 0.9% PF (SALINE LOCK) 10ML VIAL/SYR IV SCH ×2 (09:50→22:00)
[2020-03-10] MEDS: DexAMETHasone SOD PHOS 10MG/1ML VIAL INJ IV SCH (09:50)
[2020-03-10] MEDS: PROPOFOL 100 ML IV SCH (19:51)
[2020-03-10] MEDS: NOREPINEPHRINE 8 MG/250ML KIT 250 ML IV SCH (19:51)
[2020-03-11] VITALS (94 sets, daily range): BP systolic 84–139; BP diastolic 31–73
[2020-03-11] MEDS: fentaNYL Drip 2500mCg/250mlNS 250 ML IV SCH (01:09)
[2020-03-11 04:15] LABS: Mean Corpuscular Hemoglobin 30.8 pg (28.0-32.0); Mean Corpuscular Hgb Conc. 33.5 g/dL (32.0-36.0); Mean Corpuscular Volume 92.1 fL (80.0-100.0); Platelet Count (auto) 135 10^3/uL (140-450); Red Blood Cells 3.58 10^6/uL (4.0-5.20); Red Cell Distribution Width 14.8 % (11.8-14.3); White Blood Cell 8.7 10^3/uL (4.4-10.8)
[2020-03-11 04:28] LABS: Albumin 2.3 g/dL (3.4-5.0); Calcium 7.8 mg/dL (8.5-10.1); Potassium 3.8 mmol/L (3.5-5.1)
[2020-03-11 04:31] LABS: BUN/Creatinine Ratio 32.8; Bilirubin, Total 0.9 mg/dL (0.2-1.0); Total Protein 5.6 g/dL (6.4-8.2)
[2020-03-11 04:57] LABS: Basophils % (manual) 0 (0.0-2.0); Blast Cells 0; Eosinophils % (manual) 0 (0-7); Metamyelocytes % 0; Myelocytes % 0; Promyelocytes % 0; Reactive Lymphocytes 0
[2020-03-11] MEDS: MEROPENEM 1GM IVPB 100 ML IV SCH ×3 (05:00→21:28)
[2020-03-11 05:46] LABS: Band Neutrophils % (manual) 2; Lymphocytes % (manual) 7 (10.0-50.0); Monocytes % (manual) 4 (0-12)
[2020-03-11] MEDS: BUDESONIDE (INHALATION) 0.5 MG/2 ML NEB NEB SCH ×2 (07:11→18:34)
[2020-03-11] MEDS: LINEZOLID 600MG/300ML 300 ML IV SCH ×2 (07:28→17:18)
[2020-03-11] MEDS: DexAMETHasone SOD PHOS 10MG/1ML VIAL INJ IV SCH (10:33)
[2020-03-11] MEDS: ENOXAPARIN SOD 40 MG/0.4 ML SYRINGE SC SCH (10:34)
[2020-03-11] MEDS: ASCORBIC ACID 1,000 MG TAB PO SCH (10:34)
[2020-03-11] MEDS: CHOLECALCIFEROL (VITD3) 2,000 UNIT CAP PO SCH (10:34)
[2020-03-11] MEDS: FUROSEMIDE 20 MG/2 ML VIAL IV SCH (10:34)
[2020-03-11] MEDS: SODIUM CHLOR 0.9% PF (SALINE LOCK) 10ML VIAL/SYR IV SCH ×2 (10:34→21:29)
[2020-03-11] MEDS: FAMOTIDINE (10MG/ML) 2ML VL IV SCH ×2 (10:34→21:28)
[2020-03-11] MEDS: ZINC SULFATE 220mg CAP or TAB PO SCH (10:34)
[2020-03-11] MEDS: NOREPINEPHRINE 8 MG/250ML KIT 250 ML IV SCH (10:35)
[2020-03-11] MEDS: METOCLOPRAMIDE HCL 5MG/ml INJ 2ml VIAL IV SCH ×2 (13:49→21:29)
[2020-03-11] MEDS: PROPOFOL 100 ML IV SCH (17:07)
[2020-03-11] MEDS: ALBUTEROL SULF 2.5 MG/0.5ML(0.5%) NEB SOLN NEB PRN (18:34)
[2020-03-11] MEDS: MIDAZOLAM DRIP 50 mg/50mL 50 ML IV SCH (21:39)
[2020-03-12] VITALS (94 sets, daily range): BP systolic 105–186; BP diastolic 32–82
[2020-03-12] MEDS: MIDAZOLAM DRIP 50 mg/50mL 50 ML IV SCH ×6 (01:17→23:27)
[2020-03-12] MEDS: MEROPENEM 1GM IVPB 100 ML IV SCH ×3 (04:00→21:59)
[2020-03-12] MEDS: METOCLOPRAMIDE HCL 5MG/ml INJ 2ml VIAL IV SCH ×3 (04:47→20:58)
[2020-03-12] MEDS: LINEZOLID 600MG/300ML 300 ML IV SCH (06:00)
[2020-03-12] MEDS: BUDESONIDE (INHALATION) 0.5 MG/2 ML NEB NEB SCH ×2 (06:45→22:39)
[2020-03-12] MEDS: ALBUTEROL SULF 2.5 MG/0.5ML(0.5%) NEB SOLN NEB PRN ×2 (06:45→22:39)
[2020-03-12] MEDS: fentaNYL Drip 2500mCg/250mlNS 250 ML IV SCH (09:27)
[2020-03-12] MEDS: FAMOTIDINE (10MG/ML) 2ML VL IV SCH ×2 (09:58→20:57)
[2020-03-12] MEDS: CHOLECALCIFEROL (VITD3) 2,000 UNIT CAP PO SCH (09:59)
[2020-03-12] MEDS: FUROSEMIDE 20 MG/2 ML VIAL IV SCH (09:59)
[2020-03-12] MEDS: ENOXAPARIN SOD 40 MG/0.4 ML SYRINGE SC SCH (09:59)
[2020-03-12] MEDS: SODIUM CHLOR 0.9% PF (SALINE LOCK) 10ML VIAL/SYR IV SCH ×2 (10:00→22:01)
[2020-03-12] MEDS: ZINC SULFATE 220mg CAP or TAB PO SCH (10:00)
[2020-03-12] MEDS: DexAMETHasone SOD PHOS 10MG/1ML VIAL INJ IV SCH (10:00)
[2020-03-12] MEDS: ASCORBIC ACID 1,000 MG TAB PO SCH (10:00)
[2020-03-12] MEDS: NYSTATIN (MOUTH-THROAT) 500,000 UNITS/5 ML SUSP MT SCH ×3 (12:00→20:59)
[2020-03-12] MEDS: PROPOFOL 100 ML IV SCH (18:13)
[2020-03-12] MEDS: NOREPINEPHRINE 8 MG/250ML KIT 250 ML IV SCH (18:30)
[2020-03-12] MEDS: ACETAMINOPHEN 325 MG TAB PO PRN (18:50)
[2020-03-13] VITALS (95 sets, daily range): BP systolic 106–177; BP diastolic 39–99
[2020-03-13] MEDS: fentaNYL Drip 2500mCg/250mlNS 250 ML IV SCH ×2 (02:30→16:00)
[2020-03-13 04:52] LABS: Basophils # (auto) 0 10 ^3/uL (0-0.2); Basophils % (auto) 0.1 % (0.0-2.0); Eosinophils # (auto) 0.2 10 ^3/uL (0-0.8); Eosinophils % (auto) 2.5 % (0.0-7.0); Hematocrit 33.2 % (36.0-46.0); Hemoglobin 10.7 g/dL (12.2-16.2); Lymphocytes # (auto) 0.5 10 ^3/uL (0.4-5.4); Lymphocytes % (auto) 7.2 % (10.0-50.0); Mean Corpuscular Hgb Conc. 32.1 g/dL (32.0-36.0); Mean Corpuscular Volume 93.5 fL (80.0-100.0); Monocytes # (auto) 0.3 10 ^3/uL (0-1.3); Monocytes % (auto) 4.8 % (0.0-12.0); Neutrophils # (auto) 6.1 10 ^3/uL (1.6-8.6); Neutrophils % (auto) 85.4 % (37.0-80.0); Nucleated Red Blood Cells % 0.2 %; Platelet Count (auto) 169 10^3/uL (140-450); Red Blood Cells 3.55 10^6/uL (4.0-5.20); Red Cell Distribution Width 15.9 % (11.8-14.3); White Blood Cell 7.2 10^3/uL (4.4-10.8)
[2020-03-13] MEDS: MEROPENEM 1GM IVPB 100 ML IV SCH ×3 (04:52→22:06)
[2020-03-13] MEDS: METOCLOPRAMIDE HCL 5MG/ml INJ 2ml VIAL IV SCH ×3 (04:53→22:05)
[2020-03-13] MEDS: NYSTATIN (MOUTH-THROAT) 500,000 UNITS/5 ML SUSP MT SCH ×4 (04:53→22:05)
[2020-03-13 05:10] LABS: Albumin 2.4 g/dL (3.4-5.0); Calcium 7.9 mg/dL (8.5-10.1); Potassium 3.7 mmol/L (3.5-5.1)
[2020-03-13 05:13] LABS: BUN/Creatinine Ratio 36.2; Bilirubin, Total 0.8 mg/dL (0.2-1.0); Total Protein 5.5 g/dL (6.4-8.2)
[2020-03-13] MEDS: Jevity 1.2 Cal/Fiber 1 Liter GT SCH (05:22)
[2020-03-13] MEDS: MIDAZOLAM DRIP 50 mg/50mL 50 ML IV SCH ×3 (07:01→23:09)
[2020-03-13] MEDS: ALBUTEROL SULF 2.5 MG/0.5ML(0.5%) NEB SOLN NEB PRN ×2 (07:15→22:58)
[2020-03-13] MEDS: BUDESONIDE (INHALATION) 0.5 MG/2 ML NEB NEB SCH ×2 (07:15→22:58)
[2020-03-13] MEDS: ZINC SULFATE 220mg CAP or TAB PO SCH (10:00)
[2020-03-13] MEDS: CHOLECALCIFEROL (VITD3) 2,000 UNIT CAP PO SCH (10:00)
[2020-03-13] MEDS: FAMOTIDINE (10MG/ML) 2ML VL IV SCH ×2 (10:00→22:05)
[2020-03-13] MEDS: DexAMETHasone SOD PHOS 10MG/1ML VIAL INJ IV SCH (10:00)
[2020-03-13] MEDS: SODIUM CHLOR 0.9% PF (SALINE LOCK) 10ML VIAL/SYR IV SCH ×2 (10:00→22:05)
[2020-03-13] MEDS: ENOXAPARIN SOD 40 MG/0.4 ML SYRINGE SC SCH (10:00)
[2020-03-13] MEDS: FUROSEMIDE 20 MG/2 ML VIAL IV SCH (10:00)
[2020-03-13] MEDS: ASCORBIC ACID 1,000 MG TAB PO SCH (10:00)
[2020-03-13] MEDS ORDERED: POTASSIUM EFFERVESENT TAB 25 MEQ PO ONE (13:15)
[2020-03-13] MEDS: PROPOFOL 100 ML IV SCH (18:13)
[2020-03-13] MEDS: NOREPINEPHRINE 8 MG/250ML KIT 250 ML IV SCH (18:30)
[2020-03-14] VITALS (100 sets, daily range): BP systolic 94–140; BP diastolic 31–80
[2020-03-14] MEDS: MIDAZOLAM DRIP 50 mg/50mL 50 ML IV SCH ×5 (02:59→21:00)
[2020-03-14] MEDS: fentaNYL Drip 2500mCg/250mlNS 250 ML IV SCH ×2 (03:00→15:49)
[2020-03-14 05:36] LABS: Basophils # (auto) 0 10 ^3/uL (0-0.2); Basophils % (auto) 0.2 % (0.0-2.0); Eosinophils # (auto) 0 10 ^3/uL (0-0.8); Eosinophils % (auto) 0.1 % (0.0-7.0); Hematocrit 30.4 % (36.0-46.0); Hemoglobin 10.1 g/dL (12.2-16.2); Lymphocytes # (auto) 0.6 10 ^3/uL (0.4-5.4); Mean Corpuscular Hemoglobin 31.2 pg (28.0-32.0); Mean Corpuscular Hgb Conc. 33.4 g/dL (32.0-36.0); Mean Corpuscular Volume 93.4 fL (80.0-100.0); Monocytes # (auto) 0.4 10 ^3/uL (0-1.3); Monocytes % (auto) 5.5 % (0.0-12.0); Neutrophils # (auto) 6.3 10 ^3/uL (1.6-8.6); Neutrophils % (auto) 86.2 % (37.0-80.0); Nucleated Red Blood Cells % 0.2 %; Platelet Count (auto) 185 10^3/uL (140-450); Red Blood Cells 3.25 10^6/uL (4.0-5.20); Red Cell Distribution Width 15.2 % (11.8-14.3); White Blood Cell 7.3 10^3/uL (4.4-10.8)
[2020-03-14 05:37] LABS: Potassium 3.6 mmol/L (3.5-5.1)
[2020-03-14] MEDS: METOCLOPRAMIDE HCL 5MG/ml INJ 2ml VIAL IV SCH ×3 (05:44→22:00)
[2020-03-14] MEDS: NYSTATIN (MOUTH-THROAT) 500,000 UNITS/5 ML SUSP MT SCH ×4 (05:45→22:00)
[2020-03-14 05:47] LABS: Albumin 2.4 g/dL (3.4-5.0); BUN/Creatinine Ratio 37.3; Bilirubin, Total 0.8 mg/dL (0.2-1.0); Total Protein 5.3 g/dL (6.4-8.2)
[2020-03-14] MEDS: MEROPENEM 1GM IVPB 100 ML IV SCH ×3 (06:46→21:45)
[2020-03-14] MEDS: ALBUTEROL SULF 2.5 MG/0.5ML(0.5%) NEB SOLN NEB PRN (07:12)
[2020-03-14] MEDS: BUDESONIDE (INHALATION) 0.5 MG/2 ML NEB NEB SCH ×2 (07:13→22:27)
[2020-03-14] MEDS: ENOXAPARIN SOD 40 MG/0.4 ML SYRINGE SC SCH (09:53)
[2020-03-14] MEDS: ZINC SULFATE 220mg CAP or TAB PO SCH (09:54)
[2020-03-14] MEDS: DexAMETHasone SOD PHOS 10MG/1ML VIAL INJ IV SCH (09:54)
[2020-03-14] MEDS: SODIUM CHLOR 0.9% PF (SALINE LOCK) 10ML VIAL/SYR IV SCH ×2 (09:54→22:00)
[2020-03-14] MEDS: POTASSIUM EFFERVESENT TAB 25 MEQ PO SCH (09:54)
[2020-03-14] MEDS: FAMOTIDINE (10MG/ML) 2ML VL IV SCH ×2 (09:54→22:00)
[2020-03-14] MEDS: ASCORBIC ACID 1,000 MG TAB PO SCH (09:55)
[2020-03-14] MEDS: CHOLECALCIFEROL (VITD3) 2,000 UNIT CAP PO SCH (09:55)
[2020-03-14] MEDS: FUROSEMIDE 20 MG/2 ML VIAL IV SCH (10:20)
[2020-03-14] MEDS: PROPOFOL 100 ML IV SCH (17:57)
[2020-03-14] MEDS: NOREPINEPHRINE 8 MG/250ML KIT 250 ML IV SCH (17:58)
[2020-03-15] VITALS (97 sets, daily range): BP systolic 98–169; BP diastolic 31–93
[2020-03-15] MEDS: MIDAZOLAM DRIP 50 mg/50mL 50 ML IV SCH ×3 (00:25→21:00)
[2020-03-15 04:36] LABS: Basophils # (auto) 0 10 ^3/uL (0-0.2); Basophils % (auto) 0.2 % (0.0-2.0); Eosinophils # (auto) 0 10 ^3/uL (0-0.8); Hematocrit 32.7 % (36.0-46.0); Hemoglobin 10.9 g/dL (12.2-16.2); Lymphocytes # (auto) 0.6 10 ^3/uL (0.4-5.4); Lymphocytes % (auto) 7.7 % (10.0-50.0); Mean Corpuscular Hemoglobin 31.2 pg (28.0-32.0); Mean Corpuscular Hgb Conc. 33.2 g/dL (32.0-36.0); Monocytes # (auto) 0.3 10 ^3/uL (0-1.3); Monocytes % (auto) 3.3 % (0.0-12.0); Neutrophils # (auto) 7.2 10 ^3/uL (1.6-8.6); Neutrophils % (auto) 88.8 % (37.0-80.0); Nucleated Red Blood Cells % 0.4 %; Platelet Count (auto) 207 10^3/uL (140-450); Red Blood Cells 3.48 10^6/uL (4.0-5.20); Red Cell Distribution Width 15.6 % (11.8-14.3); White Blood Cell 8.1 10^3/uL (4.4-10.8)
[2020-03-15 04:55] LABS: Albumin 2.6 g/dL (3.4-5.0); BUN/Creatinine Ratio 43.8; Calcium 8.1 mg/dL (8.5-10.1); Potassium 3.8 mmol/L (3.5-5.1)
[2020-03-15 04:58] LABS: Bilirubin, Total 0.8 mg/dL (0.2-1.0); Total Protein 5.5 g/dL (6.4-8.2)
[2020-03-15] MEDS: METOCLOPRAMIDE HCL 5MG/ml INJ 2ml VIAL IV SCH ×3 (05:49→22:00)
[2020-03-15] MEDS: NYSTATIN (MOUTH-THROAT) 500,000 UNITS/5 ML SUSP MT SCH ×4 (05:49→22:00)
[2020-03-15] MEDS: MEROPENEM 1GM IVPB 100 ML IV SCH ×3 (05:49→21:38)
[2020-03-15] MEDS: ALBUTEROL SULF 2.5 MG/0.5ML(0.5%) NEB SOLN NEB PRN (07:21)
[2020-03-15] MEDS: BUDESONIDE (INHALATION) 0.5 MG/2 ML NEB NEB SCH ×2 (07:22→22:24)
[2020-03-15] MEDS: FAMOTIDINE (10MG/ML) 2ML VL IV SCH ×2 (10:00→22:00)
[2020-03-15] MEDS: ASCORBIC ACID 1,000 MG TAB PO SCH (10:00)
[2020-03-15] MEDS: ENOXAPARIN SOD 40 MG/0.4 ML SYRINGE SC SCH (10:00)
[2020-03-15] MEDS: ZINC SULFATE 220mg CAP or TAB PO SCH (10:00)
[2020-03-15] MEDS: CHOLECALCIFEROL (VITD3) 2,000 UNIT CAP PO SCH (10:00)
[2020-03-15] MEDS: POTASSIUM EFFERVESENT TAB 25 MEQ PO SCH (10:00)
[2020-03-15] MEDS: SODIUM CHLOR 0.9% PF (SALINE LOCK) 10ML VIAL/SYR IV SCH ×2 (10:12→22:00)
[2020-03-15] MEDS: fentaNYL Drip 2500mCg/250mlNS 250 ML IV SCH ×2 (13:48→23:06)
[2020-03-15] MEDS: PROPOFOL 100 ML IV SCH (17:29)
[2020-03-15] MEDS: NOREPINEPHRINE 8 MG/250ML KIT 250 ML IV SCH (17:29)
[2020-03-16] VITALS (99 sets, daily range): BP systolic 87–159; BP diastolic 32–88
[2020-03-16] MEDS: MIDAZOLAM DRIP 50 mg/50mL 50 ML IV SCH ×4 (00:30→12:08)
[2020-03-16] MEDS: METOCLOPRAMIDE HCL 5MG/ml INJ 2ml VIAL IV SCH ×3 (06:02→22:00)
[2020-03-16] MEDS: MEROPENEM 1GM IVPB 100 ML IV SCH ×3 (06:02→21:45)
[2020-03-16] MEDS: NYSTATIN (MOUTH-THROAT) 500,000 UNITS/5 ML SUSP MT SCH ×4 (06:02→22:00)
[2020-03-16] MEDS: BUDESONIDE (INHALATION) 0.5 MG/2 ML NEB NEB SCH ×2 (06:27→22:21)
[2020-03-16] MEDS: ALBUTEROL SULF 2.5 MG/0.5ML(0.5%) NEB SOLN NEB PRN ×2 (06:27→22:21)
[2020-03-16] MEDS: DexMEDEtomidine 400 MCG in D5W 5% 96 ML IV SCH (10:54)
[2020-03-16] MEDS: ENOXAPARIN SOD 40 MG/0.4 ML SYRINGE SC SCH (10:54)
[2020-03-16] MEDS: FAMOTIDINE (10MG/ML) 2ML VL IV SCH ×2 (10:54→22:00)
[2020-03-16] MEDS: POTASSIUM EFFERVESENT TAB 25 MEQ PO SCH (10:55)
[2020-03-16] MEDS: ASCORBIC ACID 1,000 MG TAB PO SCH (10:55)
[2020-03-16] MEDS: ZINC SULFATE 220mg CAP or TAB PO SCH (10:55)
[2020-03-16] MEDS: CHOLECALCIFEROL (VITD3) 2,000 UNIT CAP PO SCH (10:55)
[2020-03-16] MEDS: SODIUM CHLOR 0.9% PF (SALINE LOCK) 10ML VIAL/SYR IV SCH ×2 (10:55→22:00)
[2020-03-16] MEDS: fentaNYL Drip 2500mCg/250mlNS 250 ML IV SCH (12:08)
[2020-03-16] MEDS ORDERED: Jevity 1.2 Cal/Fiber 1 Liter GT SCH (12:45)
[2020-03-16] MEDS: PROPOFOL 100 ML IV SCH (18:13)
[2020-03-16] MEDS: NOREPINEPHRINE 8 MG/250ML KIT 250 ML IV SCH (18:30)
[2020-03-17] VITALS (82 sets, daily range): BP systolic 89–185; BP diastolic 33–103
[2020-03-17] MEDS: DexMEDEtomidine 400 MCG in D5W 5% 96 ML IV SCH (01:15)
[2020-03-17] MEDS: MEROPENEM 1GM IVPB 100 ML IV SCH ×3 (05:47→21:53)
[2020-03-17] MEDS: NYSTATIN (MOUTH-THROAT) 500,000 UNITS/5 ML SUSP MT SCH ×4 (05:47→21:55)
[2020-03-17] MEDS: METOCLOPRAMIDE HCL 5MG/ml INJ 2ml VIAL IV SCH ×3 (05:47→21:55)
[2020-03-17] MEDS: ALBUTEROL SULF 2.5 MG/0.5ML(0.5%) NEB SOLN NEB PRN ×2 (06:28→19:04)
[2020-03-17] MEDS: BUDESONIDE (INHALATION) 0.5 MG/2 ML NEB NEB SCH ×2 (06:29→19:04)
[2020-03-17 08:57] LABS: BUN/Creatinine Ratio 27.8; Calcium 8.5 mg/dL (8.5-10.1); Potassium 3.5 mmol/L (3.5-5.1)
[2020-03-17] MEDS: POTASSIUM EFFERVESENT TAB 25 MEQ PO SCH (09:31)
[2020-03-17] MEDS: SODIUM CHLOR 0.9% PF (SALINE LOCK) 10ML VIAL/SYR IV SCH ×2 (09:31→21:55)
[2020-03-17] MEDS: ENOXAPARIN SOD 40 MG/0.4 ML SYRINGE SC SCH (09:31)
[2020-03-17] MEDS: CHOLECALCIFEROL (VITD3) 2,000 UNIT CAP PO SCH (09:31)
[2020-03-17] MEDS: ZINC SULFATE 220mg CAP or TAB PO SCH (09:31)
[2020-03-17] MEDS: FAMOTIDINE (10MG/ML) 2ML VL IV SCH ×2 (09:31→21:55)
[2020-03-17] MEDS: ASCORBIC ACID 1,000 MG TAB PO SCH (09:31)
[2020-03-17] MEDS: ACETAMINOPHEN 325 MG TAB PO PRN (10:19)
[2020-03-17] MEDS: PROPOFOL 100 ML IV SCH (18:13)
[2020-03-17] MEDS: MIDAZOLAM DRIP 50 mg/50mL 50 ML IV SCH (18:13)
[2020-03-17] MEDS: fentaNYL Drip 2500mCg/250mlNS 250 ML IV SCH (18:13)
[2020-03-17] MEDS: NOREPINEPHRINE 8 MG/250ML KIT 250 ML IV SCH (18:30)
[2020-03-18] VITALS (18 sets, daily range): BP systolic 103–157; BP diastolic 44–80
[2020-03-18 04:44] LABS: Basophils # (auto) 0 10 ^3/uL (0-0.2); Basophils % (auto) 0.3 % (0.0-2.0); Eosinophils # (auto) 0.1 10 ^3/uL (0-0.8); Eosinophils % (auto) 1.3 % (0.0-7.0); Hemoglobin 12.8 g/dL (12.2-16.2); Lymphocytes # (auto) 0.8 10 ^3/uL (0.4-5.4); Lymphocytes % (auto) 7.2 % (10.0-50.0); Mean Corpuscular Hemoglobin 30.8 pg (28.0-32.0); Mean Corpuscular Hgb Conc. 32.9 g/dL (32.0-36.0); Mean Corpuscular Volume 93.6 fL (80.0-100.0); Monocytes # (auto) 0.3 10 ^3/uL (0-1.3); Monocytes % (auto) 2.6 % (0.0-12.0); Neutrophils # (auto) 9.3 10 ^3/uL (1.6-8.6); Neutrophils % (auto) 88.6 % (37.0-80.0); Nucleated Red Blood Cells % 0.2 %; Platelet Count (auto) 301 10^3/uL (140-450); Red Blood Cells 4.16 10^6/uL (4.0-5.20); Red Cell Distribution Width 17.4 % (11.8-14.3); White Blood Cell 10.5 10^3/uL (4.4-10.8)
[2020-03-18 04:54] LABS: Potassium 3.3 mmol/L (3.5-5.1)
[2020-03-18 04:58] LABS: BUN/Creatinine Ratio 28.1; Calcium 8.7 mg/dL (8.5-10.1)
[2020-03-18] MEDS: MEROPENEM 1GM IVPB 100 ML IV SCH (05:49)
[2020-03-18] MEDS: NYSTATIN (MOUTH-THROAT) 500,000 UNITS/5 ML SUSP MT SCH ×4 (05:50→21:53)
[2020-03-18] MEDS: METOCLOPRAMIDE HCL 5MG/ml INJ 2ml VIAL IV SCH ×3 (05:50→21:53)
[2020-03-18] MEDS ORDERED: POTASSIUM CHL 20MEQ/100ML 100 ML IV ONE (09:15)
[2020-03-18] MEDS: BUDESONIDE (INHALATION) 0.5 MG/2 ML NEB NEB SCH ×2 (09:47→23:32)
[2020-03-18] MEDS: ALBUTEROL SULF 2.5 MG/0.5ML(0.5%) NEB SOLN NEB PRN ×2 (09:47→23:33)
[2020-03-18] MEDS: SODIUM CHLOR 0.9% PF (SALINE LOCK) 10ML VIAL/SYR IV SCH ×2 (09:56→21:53)
[2020-03-18] MEDS: FAMOTIDINE (10MG/ML) 2ML VL IV SCH ×2 (09:56→21:53)
[2020-03-18] MEDS: ASCORBIC ACID 1,000 MG TAB PO SCH (10:00)
[2020-03-18] MEDS: ZINC SULFATE 220mg CAP or TAB PO SCH (10:00)
[2020-03-18] MEDS: CHOLECALCIFEROL (VITD3) 2,000 UNIT CAP PO SCH (10:00)
[2020-03-18] MEDS: ENOXAPARIN SOD 40 MG/0.4 ML SYRINGE SC SCH (10:08)
[2020-03-18] MEDS: DexMEDEtomidine 400 MCG in D5W 5% 96 ML IV SCH (10:24)
[2020-03-18] MEDS ORDERED: hydrALAZINE HCL 20 MG/ML VL IV PRN ×2 (16:15→16:30)
[2020-03-18] MEDS: cloNIDine HCL 0.1 MG TAB PO PRN ×2 (16:57→18:32)
[2020-03-18] MEDS: ACETAMINOPHEN 325 MG TAB PO PRN (17:04)
[2020-03-18] MEDS ORDERED: ACETAMINOPHEN 325 MG RECT SUPP PR PRN (18:30)
[2020-03-18] MEDS ORDERED: SODIUM CHLORIDE 0.9% 500 ML IV ONE (19:45)
[2020-03-18] MEDS ORDERED: DIGOXIN (250MCG/ML) 2 ML AMPULE IV ONE (19:45)
[2020-03-18] MEDS: SOD CHL 0.45% WITH 20MEQ KCL 1,000 ML IV SCH (21:00)
[2020-03-19] VITALS: BP 129/72
[2020-03-19 04:00] VITALS: BP 153/95
[2020-03-19] MEDS: METOCLOPRAMIDE HCL 5MG/ml INJ 2ml VIAL IV SCH ×3 (06:00→22:20)
[2020-03-19] MEDS: NYSTATIN (MOUTH-THROAT) 500,000 UNITS/5 ML SUSP MT SCH ×4 (06:00→22:21)
[2020-03-19 07:57] LABS: Basophils # (auto) 0.2 10 ^3/uL (0-0.2); Basophils % (auto) 1.4 % (0.0-2.0); Eosinophils # (auto) 0.1 10 ^3/uL (0-0.8); Eosinophils % (auto) 1.1 % (0.0-7.0); Hematocrit 41.3 % (36.0-46.0); Hemoglobin 13.4 g/dL (12.2-16.2); Lymphocytes # (auto) 0.5 10 ^3/uL (0.4-5.4); Lymphocytes % (auto) 4.8 % (10.0-50.0); Mean Corpuscular Hemoglobin 30.3 pg (28.0-32.0); Mean Corpuscular Hgb Conc. 32.4 g/dL (32.0-36.0); Mean Corpuscular Volume 93.6 fL (80.0-100.0); Monocytes # (auto) 0.4 10 ^3/uL (0-1.3); Monocytes % (auto) 3.7 % (0.0-12.0); Neutrophils # (auto) 10.2 10 ^3/uL (1.6-8.6); Platelet Count (auto) 315 10^3/uL (140-450); Red Blood Cells 4.41 10^6/uL (4.0-5.20); Red Cell Distribution Width 17.7 % (11.8-14.3); White Blood Cell 11.5 10^3/uL (4.4-10.8)
[2020-03-19 08:00] VITALS: BP 127/77
[2020-03-19] MEDS: BUDESONIDE (INHALATION) 0.5 MG/2 ML NEB NEB SCH (08:04)
[2020-03-19] MEDS: ALBUTEROL SULF 2.5 MG/0.5ML(0.5%) NEB SOLN NEB PRN (08:04)
[2020-03-19 08:07] LABS: BUN/Creatinine Ratio 28.9; Calcium 9.1 mg/dL (8.5-10.1); Potassium 3.6 mmol/L (3.5-5.1)
[2020-03-19] MEDS: SOD CHL 0.45% WITH 20MEQ KCL 1,000 ML IV SCH (08:27)
[2020-03-19] MEDS: DIGOXIN (250MCG/ML) 2 ML AMPULE IV SCH (08:40)
[2020-03-19] MEDS: cloNIDine HCL 0.1 MG TAB PO PRN (08:40)
[2020-03-19] MEDS: ONDANSETRON HCL 4 MG/2 ML VIAL IV PRN (08:41)
[2020-03-19] MEDS: CHOLECALCIFEROL (VITD3) 2,000 UNIT CAP PO SCH (10:00)
[2020-03-19] MEDS: ASCORBIC ACID 1,000 MG TAB PO SCH (10:00)
[2020-03-19] MEDS: SODIUM CHLOR 0.9% PF (SALINE LOCK) 10ML VIAL/SYR IV SCH ×2 (10:05→22:21)
[2020-03-19] MEDS: ENOXAPARIN SOD 40 MG/0.4 ML SYRINGE SC SCH (10:06)
[2020-03-19] MEDS: FAMOTIDINE (10MG/ML) 2ML VL IV SCH ×2 (10:06→22:20)
[2020-03-19 11:17] LABS: Magnesium 2.5 mg/dL (1.6-2.6); Phosphorus 1.4 mg/dL (2.5-4.90)
[2020-03-19] MEDS ORDERED: POTASSIUM PHOSPHATE 44 MEQ in D5W 5% 250 ML IV ONE (12:00)
[2020-03-19 13:00] VITALS: BP 126/71
[2020-03-19 17:00] VITALS: BP 151/84
[2020-03-19] MEDS: ALBUTEROL SULF HFA 90MCG INH 200DOSE IN SCH ×2 (21:28→21:33)
[2020-03-19] MEDS: BUDESONIDE (INHALATION) 180 MCG IH IN SCH ×2 (21:29→21:33)
[2020-03-19 22:00] VITALS: BP 139/82
[2020-03-19] MEDS: Ensure Enlive Strawberry 8oz Bottle PO SCH (22:00)
[2020-03-20 05:00] VITALS: BP 121/64
[2020-03-20] MEDS: NYSTATIN (MOUTH-THROAT) 500,000 UNITS/5 ML SUSP MT SCH ×4 (05:48→21:29)
[2020-03-20] MEDS: METOCLOPRAMIDE HCL 5MG/ml INJ 2ml VIAL IV SCH (05:48)
[2020-03-20] MEDS: ALBUTEROL SULF HFA 90MCG INH 200DOSE IN SCH (06:35)
[2020-03-20] MEDS: BUDESONIDE (INHALATION) 180 MCG IH IN SCH (06:35)
[2020-03-20] MEDS: SODIUM CHLOR 0.9% PF (SALINE LOCK) 10ML VIAL/SYR IV SCH ×2 (08:39→21:29)
[2020-03-20] MEDS: ASCORBIC ACID 1,000 MG TAB PO SCH (08:39)
[2020-03-20] MEDS: DIGOXIN (250MCG/ML) 2 ML AMPULE IV SCH (08:39)
[2020-03-20] MEDS: FAMOTIDINE (10MG/ML) 2ML VL IV SCH ×2 (08:39→21:29)
[2020-03-20] MEDS: Ensure Enlive Strawberry 8oz Bottle PO SCH (08:39)
[2020-03-20] MEDS: CHOLECALCIFEROL (VITD3) 2,000 UNIT CAP PO SCH (08:40)
[2020-03-20] MEDS: ENOXAPARIN SOD 40 MG/0.4 ML SYRINGE SC SCH (08:59)
[2020-03-20 09:00] VITALS: BP 128/55
[2020-03-20] MEDS ORDERED: METOPROLOL TARTRATE 25 MG TAB PO ONE (10:30)
[2020-03-20] MEDS ORDERED: [UNRECOGNIZED DRUG - OTHER] PO SCH (12:00)
[2020-03-20 13:00] VITALS: BP 144/64
[2020-03-20 17:18] VITALS: BP 148/77
[2020-03-20] MEDS: ACETAMINOPHEN 325 MG TAB PO PRN (18:56)
[2020-03-20] MEDS: METOPROLOL TARTRATE 25 MG TAB PO SCH (21:30)
[2020-03-20 22:00] VITALS: BP 129/63
[2020-03-21 04:56] VITALS: BP 136/55
[2020-03-21] MEDS: NYSTATIN (MOUTH-THROAT) 500,000 UNITS/5 ML SUSP MT SCH ×4 (05:59→21:55)
[2020-03-21] MEDS: Ensure Enlive Strawberry 8oz Bottle PO SCH ×3 (08:00→21:55)
[2020-03-21 09:00] VITALS: BP 140/74
[2020-03-21] MEDS: FAMOTIDINE (10MG/ML) 2ML VL IV SCH ×2 (09:00→21:54)
[2020-03-21] MEDS: DIGOXIN (250MCG/ML) 2 ML AMPULE IV SCH (09:00)
[2020-03-21] MEDS: SODIUM CHLOR 0.9% PF (SALINE LOCK) 10ML VIAL/SYR IV SCH ×2 (09:00→21:54)
[2020-03-21] MEDS: ASCORBIC ACID 1,000 MG TAB PO SCH (09:01)
[2020-03-21] MEDS: METOPROLOL TARTRATE 25 MG TAB PO SCH ×2 (09:01→18:54)
[2020-03-21] MEDS: ENOXAPARIN SOD 40 MG/0.4 ML SYRINGE SC SCH (09:02)
[2020-03-21] MEDS: CHOLECALCIFEROL (VITD3) 2,000 UNIT CAP PO SCH (09:02)
[2020-03-21 13:00] VITALS: BP 137/62
[2020-03-21 17:00] VITALS: BP 160/82
[2020-03-21] MEDS: cloNIDine HCL 0.1 MG TAB PO PRN (17:51)
[2020-03-21] MEDS ORDERED: SODIUM CHLORIDE 0.9% 500 ML IV ONE (19:00)
[2020-03-21 20:04] LABS: Basophils # (auto) 0.2 10 ^3/uL (0-0.2); Basophils % (auto) 1.4 % (0.0-2.0); Eosinophils # (auto) 0 10 ^3/uL (0-0.8); Eosinophils % (auto) 0.3 % (0.0-7.0); Hematocrit 37.8 % (36.0-46.0); Lymphocytes # (auto) 1.6 10 ^3/uL (0.4-5.4); Mean Corpuscular Hemoglobin 30.3 pg (28.0-32.0); Mean Corpuscular Hgb Conc. 31.7 g/dL (32.0-36.0); Mean Corpuscular Volume 95.7 fL (80.0-100.0); Monocytes # (auto) 0.9 10 ^3/uL (0-1.3); Monocytes % (auto) 7.3 % (0.0-12.0); Neutrophils # (auto) 9.4 10 ^3/uL (1.6-8.6); Nucleated Red Blood Cells % 0.1 %; Platelet Count (auto) 299 10^3/uL (140-450); Red Blood Cells 3.96 10^6/uL (4.0-5.20); Red Cell Distribution Width 17.9 % (11.8-14.3)
[2020-03-21 20:21] LABS: BUN/Creatinine Ratio 31.3; Calcium 9.1 mg/dL (8.5-10.1); Potassium 3.3 mmol/L (3.5-5.1)
[2020-03-21] MEDS ORDERED: POTASSIUM EFFERVESENT TAB 25 MEQ PO ONE (21:30)
[2020-03-21] MEDS: ACETAMINOPHEN 325 MG TAB PO PRN (21:56)
[2020-03-21 22:00] VITALS: BP 133/75
[2020-03-22 05:00] VITALS: BP 131/71
[2020-03-22] MEDS: Ensure Enlive Strawberry 8oz Bottle PO SCH ×3 (06:08→22:35)
[2020-03-22] MEDS: NYSTATIN (MOUTH-THROAT) 500,000 UNITS/5 ML SUSP MT SCH ×4 (06:08→22:35)
[2020-03-22 08:00] VITALS: BP 122/63
[2020-03-22 08:26] LABS: Basophils # (auto) 0 10 ^3/uL (0-0.2); Basophils % (auto) 0.6 % (0.0-2.0); Eosinophils # (auto) 0 10 ^3/uL (0-0.8); Eosinophils % (auto) 0.7 % (0.0-7.0); Hematocrit 33.6 % (36.0-46.0); Lymphocytes # (auto) 0.6 10 ^3/uL (0.4-5.4); Mean Corpuscular Hemoglobin 31.4 pg (28.0-32.0); Mean Corpuscular Hgb Conc. 32.8 g/dL (32.0-36.0); Mean Corpuscular Volume 95.8 fL (80.0-100.0); Monocytes # (auto) 0.4 10 ^3/uL (0-1.3); Monocytes % (auto) 6.3 % (0.0-12.0); Neutrophils # (auto) 5.7 10 ^3/uL (1.6-8.6); Neutrophils % (auto) 83.4 % (37.0-80.0); Nucleated Red Blood Cells % 0.2 %; Platelet Count (auto) 223 10^3/uL (140-450); Red Blood Cells 3.51 10^6/uL (4.0-5.20); Red Cell Distribution Width 18.3 % (11.8-14.3); White Blood Cell 6.8 10^3/uL (4.4-10.8)
[2020-03-22 08:50] LABS: Albumin 2.9 g/dL (3.4-5.0); Calcium 8.9 mg/dL (8.5-10.1); Magnesium 2.6 mg/dL (1.6-2.6)
[2020-03-22 08:53] LABS: BUN/Creatinine Ratio 42.6; Phosphorus 3.2 mg/dL (2.5-4.90); Total Protein 5.9 g/dL (6.4-8.2)
[2020-03-22] MEDS: FAMOTIDINE (10MG/ML) 2ML VL IV SCH ×2 (09:58→22:31)
[2020-03-22] MEDS: ENOXAPARIN SOD 40 MG/0.4 ML SYRINGE SC SCH (09:58)
[2020-03-22] MEDS: METOPROLOL TARTRATE 25 MG TAB PO SCH ×2 (09:58→22:00)
[2020-03-22] MEDS: SODIUM CHLOR 0.9% PF (SALINE LOCK) 10ML VIAL/SYR IV SCH ×2 (09:59→22:34)
[2020-03-22] MEDS: DIGOXIN (250MCG/ML) 2 ML AMPULE IV SCH (09:59)
[2020-03-22] MEDS: ASCORBIC ACID 1,000 MG TAB PO SCH (09:59)
[2020-03-22] MEDS: CHOLECALCIFEROL (VITD3) 2,000 UNIT CAP PO SCH (10:00)
[2020-03-22 11:44] VITALS: BP 137/75
[2020-03-22] MEDS: ACETAMINOPHEN 325 MG TAB PO PRN ×2 (12:49→20:29)
[2020-03-22 17:00] VITALS: BP 132/76
[2020-03-22 22:00] VITALS: BP 111/77
[2020-03-23] MEDS: ACETAMINOPHEN 325 MG TAB PO PRN ×2 (04:28→15:20)
[2020-03-23 05:00] VITALS: BP 119/58
[2020-03-23] MEDS: NYSTATIN (MOUTH-THROAT) 500,000 UNITS/5 ML SUSP MT SCH ×4 (06:20→22:00)
[2020-03-23] MEDS: Ensure Enlive Strawberry 8oz Bottle PO SCH ×3 (06:22→22:16)
[2020-03-23 08:00] VITALS: BP 114/69
[2020-03-23] MEDS: METOPROLOL TARTRATE 25 MG TAB PO SCH ×2 (09:21→22:16)
[2020-03-23] MEDS: ASCORBIC ACID 1,000 MG TAB PO SCH (09:22)
[2020-03-23] MEDS: FAMOTIDINE (10MG/ML) 2ML VL IV SCH ×2 (09:22→22:17)
[2020-03-23] MEDS: SODIUM CHLOR 0.9% PF (SALINE LOCK) 10ML VIAL/SYR IV SCH ×2 (09:22→22:17)
[2020-03-23] MEDS: ENOXAPARIN SOD 40 MG/0.4 ML SYRINGE SC SCH (09:23)
[2020-03-23] MEDS: CHOLECALCIFEROL (VITD3) 2,000 UNIT CAP PO SCH (09:23)
[2020-03-23 12:00] VITALS: BP 132/76
[2020-03-23 17:01] VITALS: BP 132/87
[2020-03-23 22:11] VITALS: BP 131/76
[2020-03-24 05:21] VITALS: BP 122/70
[2020-03-24] MEDS: NYSTATIN (MOUTH-THROAT) 500,000 UNITS/5 ML SUSP MT SCH ×4 (06:00→21:02)
[2020-03-24] MEDS: Ensure Enlive Strawberry 8oz Bottle PO SCH ×3 (06:12→21:02)
[2020-03-24 09:00] VITALS: BP 119/76
[2020-03-24] MEDS: METOPROLOL TARTRATE 25 MG TAB PO SCH ×2 (10:47→21:04)
[2020-03-24] MEDS: SODIUM CHLOR 0.9% PF (SALINE LOCK) 10ML VIAL/SYR IV SCH ×2 (10:47→21:01)
[2020-03-24] MEDS: FAMOTIDINE (10MG/ML) 2ML VL IV SCH ×2 (10:47→21:01)
[2020-03-24] MEDS: CHOLECALCIFEROL (VITD3) 2,000 UNIT CAP PO SCH (10:52)
[2020-03-24] MEDS: ENOXAPARIN SOD 40 MG/0.4 ML SYRINGE SC SCH (10:52)
[2020-03-24] MEDS: ASCORBIC ACID 1,000 MG TAB PO SCH (10:52)
[2020-03-24 13:00] VITALS: BP 124/71
[2020-03-24 17:00] VITALS: BP 134/69
[2020-03-24 22:00] VITALS: BP 137/79
[2020-03-25 05:00] VITALS: BP 110/65
[2020-03-25] MEDS: NYSTATIN (MOUTH-THROAT) 500,000 UNITS/5 ML SUSP MT SCH (05:46)
[2020-03-25] MEDS: Ensure Enlive Strawberry 8oz Bottle PO SCH (05:50)
[2020-03-25 08:00] VITALS: BP 126/64
[2020-03-25] MEDS ORDERED: METO25TA36 PO (09:37)
[2020-03-25] MEDS ORDERED: ASCO10003 PO (09:37)
[2020-03-25] MEDS ORDERED: CHOL1CAP47 PO (09:37)
[2020-03-25] MEDS: CHOLECALCIFEROL (VITD3) 2,000 UNIT CAP PO SCH (10:05)
[2020-03-25] MEDS: ASCORBIC ACID 1,000 MG TAB PO SCH (10:05)
[2020-03-25] MEDS: ENOXAPARIN SOD 40 MG/0.4 ML SYRINGE SC SCH (10:05)
[2020-03-25] MEDS: METOPROLOL TARTRATE 25 MG TAB PO SCH (10:06)
[2020-03-25] MEDS: SODIUM CHLOR 0.9% PF (SALINE LOCK) 10ML VIAL/SYR IV SCH (10:06)
[2020-03-25] MEDS: FAMOTIDINE (10MG/ML) 2ML VL IV SCH (10:06)
== END 2020-03-25 14:45 | disposition home or self-care (01) | DRG 720 ==
LOC: EDBD 04:11 → ER 04:11 → TELE 04:12 → DOU IN ICU 02-29 10:50 → ICU WEST 03-09 03:00 → DOU IN ICU 03-18 14:57 → TELE-EAST 03-19 11:20
PROVIDERS: ADMIT Nurse Practitioner; ATTEND Internal Medicine
PROC: 5A09457 Assistance with Respiratory Ventilation, 24-96 Consecutive Hours, Continuous Positive Airway Pressure (ICD-10-PCS; 2020-02-28)
PROC: XW033E5 Introduction of Remdesivir Anti-infective into Peripheral Vein, Percutaneous Approach, New Technology Group 5 (ICD-10-PCS; 2020-02-28)
PROC: 5A1955Z Respiratory Ventilation, Greater than 96 Consecutive Hours (ICD-10-PCS; 2020-02-29)
PROC: 0BH17EZ Insertion of Endotracheal Airway into Trachea, Via Natural or Artificial Opening (ICD-10-PCS; 2020-02-29)
PROC: XW13325 Transfusion of Convalescent Plasma (Nonautologous) into Peripheral Vein, Percutaneous Approach, New Technology Group 5 (ICD-10-PCS; principal; 2020-03-01)
PROC: 02HV33Z Insertion of Infusion Device into Superior Vena Cava, Percutaneous Approach (ICD-10-PCS; 2020-03-02)
PROC: 05H333Z Insertion of Infusion Device into Right Innominate Vein, Percutaneous Approach (ICD-10-PCS; 2020-03-09)
PROC: 02HV33Z Insertion of Infusion Device into Superior Vena Cava, Percutaneous Approach (ICD-10-PCS; 2020-03-11)
DX: A41.89 Other specified sepsis (principal); U07.1 COVID-19; J96.01 Acute respiratory failure with hypoxia; J12.89 Other viral pneumonia; I21.A1 Myocardial infarction type 2; N17.0 Acute kidney failure with tubular necrosis; E44.0 Moderate protein-calorie malnutrition; J15.5 Pneumonia due to Escherichia coli; E66.01 Morbid (severe) obesity due to excess calories; I49.5 Sick sinus syndrome; D69.6 Thrombocytopenia, unspecified; Q90.9 Down syndrome, unspecified; R73.03 Prediabetes; Z99.11 Dependence on respirator [ventilator] status; B37.49 Other urogenital candidiasis; Z68.32 Body mass index [BMI] 32.0-32.9, adult
CPT/HCPCS: 36415; 36569; 36600; 71045; 80048; 80053; 81001; 82040; 82728; 82805; 82962; 83036; 83605; 83615; 83735; 83880; 84100; 84439; 84443; 84478; 84484; 85007; 85025; 85027; 85379; 85610; 85730; 86141; 86850; 86900; 86901; 87040; 87070; 87077; 87081; 87086; 87088; 87186; 87205; 87426; 87493; 92610; 93005; 93970; 94002; 94003; 94640; 94660; 97110; 97530; G0378; J0330; J0696; J1100; J1815; J1956; J2185; J2250; J2405; J2704; J3480; J3490; J7060; J7131